=== PATIENT | male | born 1990 | race Caucasian/White ===

== ENCOUNTER 2018-09-18 18:51 | Emergency (ER) | payer OTHER, MEDICAID, SELFPAY ==
[2018-09-18 18:59] VITALS: BP 140/91; PULSE 88; RESP 16; TEMP 38; O2SAT 98; BMI 24.3
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
[2018-09-18 21:01] VITALS: BP 133/85; PULSE 68; RESP 16; TEMP 36.8; O2SAT 98
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
== END 2018-09-18 21:05 | disposition home or self-care (01) ==
PROVIDERS: Emergency Provider Emergency Medicine
DX: S06.0X9A Concussion with loss of consciousness of unspecified duration, initial encounter (principal); S00.83XA Contusion of other part of head, initial encounter; Y09 Assault by unspecified means
CPT/HCPCS: 70450; 70480; 72125; 99283; 99284

== ENCOUNTER 2018-10-02 15:27 | Emergency (ER) | payer OTHER, MEDICAID, SELFPAY ==
[2018-10-02 15:42] VITALS: BP 125/73; PULSE 82; RESP 19; TEMP 37.3; O2SAT 98; BMI 27.6
[2018-10-02 16:03] LABS: Influenza A and B by PCR Rapid Negative (Negative)
--- NOTE | 2018-10-02 17:17 | ED_ITS ---
HPI - URI/Sore Throat <BENOIT De La Torre - Last Filed: 10/02/18 22:27> General Chief Complaint: Upper Respiratory Symptoms Stated Complaint: COUGH FIRE IN LUNGS Time Seen by Provider: 10/02/18 15:44 Source: patient Mode of arrival: ambulatory Limitations: no limitations History of Present Illness HPI Narrative: 28-year-old male with history of Kujjz-Lwdeacijr-Tyahl disorder that is a nonsmoker here for complaint having cough nasal congestion for and sore throat for the last 5 days. He reports that his family members have had similar symptoms over the same timeframe. He states that he had a fever last night. He has also had chills. Positive p.o. intake. No vomiting. He denies productive cough. No chest pain no shortness of breath. No other concerns or complaints at this timeframe. MD Complaint: fever, cough, sore throat and nasal congestion Related Data Previous Rx's Medication Instructions Recorded benzonatate 200 mg PO TID PRN #15 cap 10/02/18 Allergies Allergy/AdvReac Type Severity Reaction Status Date / Time No Known Drug Allergies Allergy Verified 09/18/18 19:04 Review of Systems <BENOIT De La Torre - Last Filed: 10/02/18 22:27> Constitutional Reports chills, Reports fever(s), Denies lethargy and Denies weakness Eyes Denies change in vision, Denies eye discharge, Denies irritation and Denies loss of vision ENT Ears, Nose, Mouth, and Throat: Reports nasal congestion, Reports nasal discharge and Denies throat swelling Cardiovascular Denies chest pain, Denies irregular heart rhythm, Denies lightheadedness, Denies palpitations and Denies orthopnea Respiratory Reports cough and Denies wheezing Gastrointestinal Gastrointestinal: Denies abdominal pain, Denies change in bowel habits, Denies diarrhea, Denies nausea and Denies vomiting Genitourinary Denies hematuria, Denies flank pain, Denies urinary incontinence and Denies urinary urgency Musculoskeletal Denies back pain, Denies muscle weakness, Denies numbness and Denies tingling Integumentary/Breasts Denies pruritus, Denies erythema, Denies rash and Denies wounds Neurologic Denies confusion, Denies loss of vision, Denies numbness, Denies tingling and Denies weakness Psychiatric Denies anxiety, Denies confusion, Denies depression, Denies homicidal ideation and Denies suicidal ideation Endocrine Denies palpitations Hematologic/Lymphatic Denies easy bruising Allergic/Immunologic Denies urticaria, Denies throat swelling and Denies wheezing Exam <BENOIT De L aTorre - Last Filed: 10/02/18 22:27> Initial Vital Signs Initial Vital Signs: Vital Signs Temperature 99.1 F 10/02/18 15:42 Pulse Rate 82 10/02/18 15:42 Respiratory Rate 10/02/18 15:42 Blood Pressure 125/73 10/02/18 15:42 Pulse Oximetry 98 10/02/18 15:42 Const General: cooperative and well developed Nutritional Appearance: well nourished Orientation: alert, awake, oriented x3 and not confused HENMT Ears: external ears normal and TM's normal bilaterally Nose: external nose normal Face and sinus: normal facial exam Mouth: oral mucosae normal, oropharynx normal and moist mucous membranes Eyes Conjunctivae: conjunctivae normal Sclera: sclerae normal Pupils: PERRL EOM: EOM intact bilaterally Neck Neck: normal visual inspection, trachea midline, No lymphadenopathy, No midline deformity and No JVD Lymphatic: No lymphedema Resp Effort & Inspection: normal respiratory effort, able to speak in complete sentences, no respiratory distress and no use of accessory muscles Auscultation: clear to auscultation bilaterally, no rales, no rhonchi and no wheezes Cardio Rate: regular rate Rhythm: regular rhythm Heart Sounds: no click, no gallops, no murmurs and no rubs Pulses: normal peripheral pulses Skin General: no rashes or lesions noted, No jaundice and No petechiae Neuro General: alert, oriented x3, gait normal and no focal motor deficits Speech: speech normal <Nazario Cueto DO - Last Filed: 10/14/18 03:51> Initial Vital Signs Initial Vital Signs: Vital Signs Temperature 99.1 F 10/02/18 15:42 Pulse Rate 82 10/02/18 15:42 Respiratory Rate 10/02/18 15:42 Blood Pressure 125/73 10/02/18 15:42 Pulse Oximetry 98 10/02/18 15:42 Course <BENOIT De La Torre - Last Filed: 10/02/18 22:27> Orders Ordered: ED Orders 10/02/18 15:42 Influenza A and B by PCR Rapid Stat 10/02/18 17:36 XR chest 2V Stat Vital Signs - 8 hr 10/02/18 15:42 10/02/18 19:03 Temperature 99.1 F 98.8 F Pulse Rate 82 88 Respiratory Rate 19 18 Blood Pressure 125/73 Pulse Oximetry 98 98 <Nazario Cueto DO - Last Filed: 10/14/18 03:51> Orders Ordered: ED Orders 10/02/18 15:42 Influenza A and B by PCR Rapid Stat 10/02/18 17:36 XR chest 2V Stat Vital Signs - 8 hr 10/02/18 15:42 10/02/18 19:03 Temperature 99.1 F 98.8 F Pulse Rate 82 88 Respiratory Rate 19 18 Blood Pressure 125/73 Pulse Oximetry 98 98 MDM - URI/Sore Throat <BENOIT De La Torre - Last Filed: 10/02/18 22:27> Lab Data Lab Results 10/02/18 Range/Units 15:42 Influenza A & B (PCR) Negative (Negative) Point of Care Testing Rapid Strep A Negative Imaging Data Chest x-ray: Radiologist's impression: [place] [address] XRay Report Signed Patient: [facility]#: [id number] : 1990Acct:[id number] Age/Sex: 28 / MDate of Service: 10/02/18 Loc: ED Accession Number: [id number] Procedure: XR chest 2V Ordering Provider: Beltran Blanco PROCEDURE: XR CHEST 2V INDICATIONS: Fever and cough TECHNIQUE: 2 views of the chest were acquired. COMPARISON: None. FINDINGS: Surgical changes and devices: None. Lungs and pleura: No pleural effusions or pneumothorax. Lungs are clear. Mediastinum: Mediastinal contours are normal. Heart size is normal. Bones and chest wall: No suspicious bony abnormalities. Soft tissues appear unremarkable. IMPRESSION: No acute cardiopulmonary findings. Dictated by: Azalia Casiano M.D. on 10/02/2018 at 17:55 Approved by: Azalia Casiano M.D. on 10/02/2018 at 17:55 [facility] Narrative Medical decision making narrative: Chest x-ray was obtained was negative for any acute findings. Influenza swab was obtained was also negative. Strep test was obtained and was negative. Signs and symptoms presents as a viral illness. [id number] Tylenol Motrin as needed for any discomfort or fever. Plenty of fluids. And rest. Saline irrigation and hot showers to help with congestion. May use aheo-npz-pijzhlf Mucinex to help with congestion. He is given a prescription of Tessalon Perles to help with cough follow up with primary care provider next week. For any worsening symptoms return emergency room. <Nazario Cueto DO - Last Filed: 10/14/18 03:51> Lab Data Lab Results 10/02/18 Range/Units 15:42 Influenza A & B (PCR) Negative (Negative) Point of Care Testing Rapid Strep A Negative Discharge Plan Departure Patient Disposition: Home Clinical Impression: Upper respiratory infection Discharge Date/Time: 10/02/18 19:04 Interventions: ED Discharge Assessment Last Done: 10/02/18 19:04 Instructions: DI for Viral Upper Respiratory Infection -- Adult Activity Restrictions/Additional Instructions: Chest x-ray was obtained and was negative for pneumonia. Influenza a test and strep test were both negative. Signs and symptoms presents as viral upper respiratory infection. Supportive care and time is the here. Plenty of fluids and rest. Saline irrigation and nasal passages and hot showers to help with congestion. May use fvar-ubg-ukkeacv Mucinex to help thin secretions. Tessalon Perles as prescribed help with cough use as directed. Follow up with her primary care provider next week for re-evaluation. Hpvo-kda-wbmgrtl Tylenol or Motrin as needed for discomfort and fever. For any worsening symptoms return to the emergency room Prescriptions: New benzonatate 200 mg capsule 200 mg PO TID PRN (Reason: cough) Qty: 15 RF: 0 Referrals: [facility] [Provider Group] <Nazario Cueto DO - Last Filed: 10/14/18 03:51> Cosign ED Attending Kimberlee Attestation: I was immediately available in the department for consultation. Documentation has been reviewed. I agree with assessment and plan.
--- NOTE | 2018-10-02 17:36 | DI.RAD.S_ITS ---
PROCEDURE: XR CHEST 2V INDICATIONS: Fever and cough TECHNIQUE: 2 views of the chest were acquired. COMPARISON: None. FINDINGS: Surgical changes and devices: None. Lungs and pleura: No pleural effusions or pneumothorax. Lungs are clear. Mediastinum: Mediastinal contours are normal. Heart size is normal. Bones and chest wall: No suspicious bony abnormalities. Soft tissues appear unremarkable. IMPRESSION: No acute cardiopulmonary findings. Dictated by: Azalia Casiano M.D. on 10/02/2018 at 17:55 Approved by: Azalia Casiano M.D. on 10/02/2018 at 17:55
[2018-10-02 19:03] VITALS: PULSE 88; RESP 18; TEMP 37.1; O2SAT 98
== END 2018-10-02 19:04 | disposition home or self-care (01) ==
PROVIDERS: Emergency Medicine; Emergency Provider Nurse Practitioner Family
DX: J06.9 Acute upper respiratory infection, unspecified (principal)
CPT/HCPCS: 71046; 87400; 87880; 99282; 99284

== ENCOUNTER 2019-02-11 20:54 | Emergency (ER) | payer OTHER, MEDICAID, SELFPAY ==
[2019-02-11 21:09] VITALS: BP 123/83; PULSE 82; RESP 16; TEMP 36.6; O2SAT 100; BMI 25.0
--- NOTE | 2019-02-11 21:13 | ED_ITS ---
HPI - Back Pain/Injury General Chief Complaint: Back Pain/Injury Stated Complaint: PAIN UNDER RIB Time Seen by Provider: 02/11/19 21:06 Source: patient Mode of arrival: ambulatory Limitations: no limitations History of Present Illness HPI Narrative: Patient is an otherwise healthy 29-year-old male here for evaluation of 2-3 days of right upper quadrant abdominal pain and right-sided flank pain. He states that his flank/back pain did improve after he took some ibuprofen however he does have some right upper quadrant pain. No prior abdominal surgeries. No change in bowel habits. No urinary symptoms. No rash es. No fevers. Other than the ibuprofen is not tried anything for symptoms prior to arrival. Related Data Previous Rx's Medication Instructions Recorded benzonatate 200 mg PO TID PRN #15 cap 10/02/18 Allergies Allergy/AdvReac Type Severity Reaction Status Date / Time No Known Drug Allergies Allergy Verified 09/18/18 19:04 Review of Systems Constitutional Denies fever(s) Cardiovascular Denies chest pain and Denies dyspnea Respiratory Denies cough and Denies dyspnea Gastrointestinal Gastrointestinal: Reports abdominal pain, Denies change in stool character, Denies diarrhea, Denies nausea and Denies vomiting Genitourinary Denies dysuria, Denies testicular pain and Denies urinary urgency Musculoskeletal Reports back pain, Denies myalgias and Denies arthralgias Integumentary/Breasts Denies rash Neurologic Denies behavioral changes Psychiatric Denies behavioral changes Hematologic/Lymphatic Denies easy bleeding and Denies easy bruising [facility] Medical History Healthy adult (Acute) Social History Smoking Status: Never smoker Social History Smoking Status: Never smoker Exam Initial Vital Signs Initial Vital Signs: Vital Signs Temperature 97.8 F 02/11/19 21:09 Pulse Rate 82 02/11/19 21:09 Respiratory Rate 16 02/11/19 21:09 Blood Pressure 123/83 02/11/19 21:09 Pulse Oximetry 100 02/11/19 21:09 Const General: cooperative, healthy appearing, comfortable, well developed, well groomed and No acute distress Orientation: alert, awake and oriented x3 HENMT Head: normal to inspection and normocephalic Resp Effort & Inspection: normal respiratory effort Auscultation: clear to auscultation bilaterally Cardio Rate: regular rate Rhythm: regular rhythm Pulses: radial pulses present GI Inspection: non-distended Palpation: soft, No firm and tender (Right upper quadrant with positive Blanton sign) Back/Spine/Pelvis Back: No CVA tenderness Skin Lesions: no lesions Rashes: no rashes Neuro General: alert and awake Cognition: normal cognition Speech: speech normal Motor: muscle tone normal throughout Extrem General: normal to inspection and capillary refill normal Psych Appearance: grossly normal and well kempt Course Orders Ordered: ED Orders 02/11/19 21:14 US abdomen limited Stat 02/11/19 21:34 Complete Blood Count AUTO DIFF Stat Comprehensive Metabolic Panel Stat Lipase Stat 02/11/19 22:54 CT abdomen wwo pelvis w Stat Discontinued Medications Sodium Chloride (Normal Saline 0.9%) 1,000 mls @ 1,000 mls/hr IV BOLUS ONE Stop: 02/11/19 23:53 Last Infusion: 02/12/19 00:44 Dose: 1,000 mls/hr Admin: 02/11/19 23:00 Dose: 1,000 mls/hr Vital Signs - 8 hr 02/11/19 21:09 02/11/19 22:00 02/12/19 00:30 Temperature 97.8 F Pulse Rate 82 80 77 Respiratory Rate 16 14 15 Blood Pressure 123/83 Blood Pressure [Left Arm] 95/62 134/71 Pulse Oximetry 100 98 97 MDM - Back Pain/Injury Lab Data Attestation: I reviewed the patient's lab results. Result diagrams: 02/11/19 21:34 02/11/19 21:34 Lab Results 02/11/19 02/11/19 Range/Units 21:34 21:34 WBC 8.3 (4.5-11.0) X10^3/uL RBC 4.75 (4.5-5.9) X10^6/uL Hgb 14.5 (13.5-17.5) g/dL Hct 41.2 (41-53) % MCV 86.7 (80-100) fL MCH 30.4 (26-34) PG MCHC 35.1 (30-36) % RDW 13.0 (11.6-14.8) % Plt Count 165 (150-400) X10^3/uL Neut % (Auto) 71.5 (50-75) % Lymph % (Auto) 17.1 L (25-40) % [place] % (Auto) 8.6 (3-14) % Eos % (Auto) 2.2 (2-4) % Baso % (Auto) 0.6 (0-2) % Neut # (Auto) 5900 (4261-0195) /uL Lymph # (Auto) 1400 (1495-3601) /uL [place] # (Auto) 700 (0-900) /uL Eos # (Auto) 200 (0-450) /uL Baso # (Auto) 100 (0-100) /uL Sodium 138 (137-145) mmol/L Potassium 4.7 (3.4-5.1) mmol/L Chloride 99 (98-107) mmol/L Carbon Dioxide 32 (22-32) mmol/L BUN 11 (9-20) mg/dL Creatinine 0.90 (0.66-1.25) mg/dL Estimated GFR > 60.0 (>60) mL/min BUN/Creatinine Ratio 12.2 (6-22) Glucose 84 (70-100) mg/dL Calcium 9.3 (8.4-10.2) mg/dL Total Bilirubin 0.6 (0.2-1.3) mg/dL AST 24 (17-59) IU/L ALT 17 L (21-72) IU/L Alkaline Phosphatase 90 (38-126) U/L Total Protein 7.1 (6.3-8.2) g/dL Albumin 4.1 (3.5-5.0) g/dL Globulin 3.0 (1.7-4.1) g/dL Albumin/Globulin Ratio 1.4 (1.0-2.8) Lipase 83 (23-300) U/L Imaging Data US - abdomen: Radiologist's impression: No gallstones or biliary ductal dilation. No evidence of acute cholecystitis. In the lower pole the right kidney is of 4.0 x 2.5 x 2.5 cm heterogeneous mass. This is indeterminate. CT kidneys with and without contrast is recommended for further evaluation CT scan - abdomen: Radiologist's impression: No evidence of right-sided renal mass. No hydronephrosis or stone. Cortical thinning/guarding is noted in the lower pole the right kidney. No evidence of bowel obstruction or free air. Normal appendix. MDM Narrative Medical decision making narrative: Patient's labs unremarkable. Right upper quadrant ultrasound shows no signs of acute cholecystitis. The concern for mass on the ultrasound was not evident on the CT scan. The risks of the CT scan was unremarkable. No findings consistent with surgical pathology. No infectious etiology found. Patient does have a relatively benign abdominal exam. No rashes on the skin consistent with zoster other infectious etiology. The right lower lobe of the lung was also unremarkable on the CT scan. Low suspicion for pneumonia. Hold on further workup for now. Patient was given information to establish a primary provider here in the area. He is given return precautions. They expressed understanding and agreement with plan. Discharge Plan Departure Patient Disposition: Home Clinical Impression: Abdominal pain Qualifiers: Abdominal location: right upper quadrant Qualified Code(s): R10.11 - Right upper quadrant pain Discharge Date/Time: 02/12/19 00:50 Interventions: ED Discharge Assessment Last Done: 02/12/19 00:50 Instructions: DI for Abdominal Pain-Adult Activity Restrictions/Additional Instructions: Your workup here in the emergency department was negative for any infection or surgical issue. I do recommend you contact the health human resources partner here at the hospital at [phone] to help establish a primary provider. Return to the emergency department for any new or worsening symptoms Prescriptions: No Action benzonatate 200 mg capsule 200 mg PO TID PRN (Reason: cough) Qty: 15 RF: 0
--- NOTE | 2019-02-11 21:14 | DI.US.S_ITS ---
PROCEDURE: US ABDOMEN LIMITED INDICATIONS: RIGHT UPPER QUADRANT PAIN RADIATING TO BACK TECHNIQUE: Real-time focused scanning was performed of the abdomen, with image documentation. COMPARISON: None. FINDINGS: Liver is normal in size and echotexture. Gallbladder is contracted. No gallstones. No pericholecystic fluid. Gallbladder wall is not thickened measuring 2.7 mm. Sonographic Blanton sign reported. The Biliary tree is nondilated. The bile duct measures 3.6 mm. Pancreas is sonographically normal. A heterogeneous mass measuring 4.0 x 2.5 x 2.5 cm node in the lower pole the right kidney. IMPRESSION: 1. No sonographic evidence of cholelithiasis or cholecystitis. 2. 4.0 x 2.5 x 2.5 cm heterogeneous mass in the lower pole the right kidney. Recommend CT scan of the abdomen with and without contrast (renal protocol) for definitive characterization. Dictated by: Tanisha Dyson MD, PhD on 02/12/2019 at 9:03 Approved by: Tanisha Dyson MD, PhD on 02/12/2019 at 9:06
[2019-02-11 21:37] LABS: Add Manual Diff / Slide Review NO; Basophils Absolute Auto 100 /uL (0-100); Basophils Percent Auto 0.6 % (0-2); Eosinophils Absolute Auto 200 /uL (0-450); Eosinophils Percent Auto 2.2 % (2-4); Hematocrit 41.2 % (41-53); Hemoglobin 14.5 g/dL (13.5-17.5); Lymphocytes Absolute Auto 1400 /uL (1100-4500); Lymphocytes Percent Auto 17.1 % (25-40); Mean Corpuscular HGB Conc 35.1 % (30-36); Mean Corpuscular Hemoglobin 30.4 PG (26-34); Mean Corpuscular Volume 86.7 fL (80-100); Monocytes Absolute Auto 700 /uL (0-900); Monocytes Percent Auto 8.6 % (3-14); Neutrophils Absolute Auto 5900 /uL (1500-7000); Neutrophils Percent Auto 71.5 % (50-75); Platelet Count 165 X10^3/uL (150-400); Red Blood Cell Count 4.75 X10^6/uL (4.5-5.9); White Blood Cell Count 8.3 X10^3/uL (4.5-11.0)
[2019-02-11 21:47] LABS: Alanine Aminotransferase 17 IU/L (21-72); Albumin 4.1 g/dL (3.5-5.0); Albumin Globulin Ratio 1.4 (1.0-2.8); Alkaline Phosphatase 90 U/L (38-126); Aspartate Aminotransferase 24 IU/L (17-59); BUN Creatinine Ratio 12.2 (6-22); Bilirubin Total 0.6 mg/dL (0.2-1.3); Blood Urea Nitrogen 11 mg/dL (9-20); Calcium 9.3 mg/dL (8.4-10.2); Carbon Dioxide 32 mmol/L (22-32); Chloride 99 mmol/L (98-107); Estimated Glomerular Filt Rate > 60.0 mL/min (>60); Glucose 84 mg/dL (70-100); HEMOLYSIS < 15 (0-50); Lipase 83 U/L (23-300); Potassium 4.7 mmol/L (3.4-5.1); Sodium 138 mmol/L (137-145); Total Protein 7.1 g/dL (6.3-8.2)
[2019-02-11 22:00] VITALS: BP 95/62; PULSE 80; RESP 14; O2SAT 98
--- NOTE | 2019-02-11 22:08 | PC.NURSE ---
Pt states R sided rib pain worse with inspiration for past two days. Also reports back pain that has now resolved after he took ibuprofen at 0800. Denies fevers, N/V, or loose stool. Last BM today was normal. LS clear bilaterally to auscultation.
--- NOTE | 2019-02-11 22:54 | DI.CT.S_ITS ---
PROCEDURE: CT ABDOMEN WWO PELVIS W INDICATIONS: Evaluate right renal mass TECHNIQUE: Noncontrast 5 mm thick sections acquired from the diaphragms to the iliac crests. After the administration of intravenous contrast, 5 mm thick sections acquired from the diaphragms to the symphysis during the arterial and delayed nephrographic phases. 5 mm thick coronal and sagittal reformats were acquired. For radiation dose reduction, the following was used: automated exposure control, adjustment of mA and/or kV according to patient size. COMPARISON: [facility], US, US ABDOMEN LIMITED, 02/11/2019, 21:52. [facility], CT, CT ABDOMEN PELVIS WITH CONTRAST, 02/27/2018, 13:44. FINDINGS: Image quality: Excellent. ABDOMEN: Lung bases: There is minimal dependent atelectasis. Heart size is normal. Solid organs: Evaluation of the liver demonstrates no focal hepatic lesions. The gallbladder appears within normal limits without calcified gallstones. Biliary system is non-dilated. Pancreas enhances normally. No peripancreatic fat stranding or fluid collections. No pancreatic duct dilatation. The spleen is normal in size. No adrenal nodules. Kidneys demonstrate no nephrolithiasis. There is a duplicated right collecting system with cortical thinning of the lower pole moiety likely reflecting sequela of reflux. There is associated prominent renal sinus fat likely corresponding to the finding on prior ultrasound. No discrete mass identified in the right or left kidney. No hydronephrosis or perinephric stranding. No perinephric fluid collections. No heterogeneous enhancement of the kidneys to suggest pyelonephritis. The ureters appear normal in caliber. The distal ureters are not well-visualized due to nondistention and limited opacification. Bowel and peritoneum: Stomach, small and large bowel loops are normal in caliber and wall thickness. The appendix is normal in appearance. No free fluid or air. Nodes and vessels: No retroperitoneal or mesenteric adenopathy by size criteria. Aorta and inferior vena are normal in caliber. Miscellaneous: No ventral hernias. PELVIS: Genitourinary: Bladder wall thickness is normal. Miscellaneous: No inguinal hernias or adenopathy. Bones: No suspicious bony lesions. No vertebral body compression fractures. There is grade one anterolisthesis at L5-S1 with bilateral pars defects. These appear unchanged from the prior study. IMPRESSION: 1. 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 No definite CT evidence of pyelonephritis on the current study. No perinephric fluid collections or hydronephrosis. 2. No right renal mass identified. The findings on ultrasound likely correspond to prominence of the renal sinus fat associated with cortical thinning in the lower pole moiety. 3. No definite acute intra-abdominal abnormality to correlate with patient's symptoms. Specifically, no evidence of appendicitis. Dictated by: Tex Ayoub M.D. on 02/12/2019 at 7:56 Approved by: Tex Ayoub M.D. on 02/12/2019 at 8:15
[2019-02-11] MEDS: SODIUM CHLORIDE 0.9% 1,000 ML 1000 ML IV (23:00)
[2019-02-12 00:30] VITALS: BP 128/74; BP 134/71; PULSE 77; PULSE 88; RESP 15; RESP 16; O2SAT 97; O2SAT 98
== END 2019-02-12 00:50 | disposition home or self-care (01) ==
PROVIDERS: Emergency Provider Emergency Medicine
DX: R10.11 Right upper quadrant pain (principal)
CPT/HCPCS: 36591; 74178; 76705; 80053; 83690; 85025; 96360; 96361; 99283; 99284; Q9967